=== PATIENT | male | born 1935 | race Caucasian/White ===

== ENCOUNTER 2017-11-18 11:20 | Inpatient (IN) | payer MEDICARE, OTHER ==
[~2017-11-18] VITALS: Ht 167.6 cm; Wt 85.0 kg
[~2017-11-18 11:20] MED LIST: BACK1EAC10 TOP
[2017-11-18 11:50] LABS: BASOPHILS % (AUTO) 0 % (0-1); EOSINOPHILS # (AUTO) 0.4 X10'3 (0-0.9); EOSINOPHILS % (AUTO) 5.5 % (0-6); HEMATOCRIT 41.3 % (42.0-52.0); HEMOGLOBIN 13.4 g/dl (14.0-17.9); LYMPHOCYTES # (AUTO) 0.8 X10'3 (1.1-4.8); LYMPHOCYTES % (AUTO) 11.7 % (21-51); MEAN CORPUSCULAR HEMOGLOBIN 30.2 PG (27.0-31.0); MEAN CORPUSCULAR HGB CONC 32.4 % (33.0-36.5); MEAN PLATELET VOLUME 7.4 FL (7.4-10.4); MONOCYTES # (AUTO) 0.5 X10'3 (0-0.9); MONOCYTES % (AUTO) 8.6 % (2-12); NEUTROPHILS # (AUTO) 4.7 X10'3 (1.8-7.7); NEUTROPHILS % (AUTO) 74.2 % (42-75); PLATELET COUNT 157 X10'3 (140-440); RED BLOOD COUNT 4.45 X10'6 (4.70-6.10); RED CELL DISTRIBUTION WIDTH 15.8 % (11.5-14.5); WHITE BLOOD COUNT 6.4 X10'3 (4.5-11.0)
[2017-11-18 12:00] LABS: INR 2.6 INR; PARTIAL THROMBOPLASTIN TIME 33 SECONDS (22-32); PROTHROMBIN TIME 26.1 SECONDS (9.0-12.0)
[2017-11-18 12:15] LABS: ALANINE AMINOTRANSFERASE 65 U/L (12-78); ALBUMIN 3.8 G/DL (3.4-5.0); ALBUMIN/GLOBULIN RATIO 1.1 (1.1-1.5); ALKALINE PHOSPHATASE 79 IU/L (46-116); ANION GAP 4 (8-16); ASPARTATE AMINO TRANSFERASE 44 U/L (10-37); BILIRUBIN,TOTAL 1.4 MG/DL (0.1-1.0); BLOOD UREA NITROGEN 16 MG/DL (7-18); BUN/CREATININE RATIO 18.2 (5.4-32.0); CHLORIDE 108 MMOL/L (99-107); CREATININE 0.88 MG/DL (0.60-1.10); ETHANOL < 0.010 GM/DL (0.0-0.010); GLUCOSE 110 MG/DL (70-104); MAGNESIUM 2.1 MG/DL (1.5-2.4); PHOSPHORUS 3.2 MG/DL (2.3-4.5); POTASSIUM 4.2 MMOL/L (3.5-5.1); SODIUM 145 MMOL/L (135-145); TOTAL CARBON DIOXIDE 33.3 MMOL/L (24-32); TOTAL PROTEIN 7.4 G/DL (6.4-8.2); eGFR 83 ML/MIN
[2017-11-18 12:55] LABS: CLARITY,URINE CLEAR (Clear); COLOR,URINE YELLOW (Yellow); GLUCOSE, URINE NEGATIVE (Neg); KETONES,URINE NEGATIVE (Neg); LEUKOCYTE ESTERASE ,URINE NEGATIVE (Neg); NITRITES, URINE NEGATIVE (Neg); OCCULT BLOOD,URINE NEGATIVE (Neg); PH,URINE 5.5 (4.8-8.0); PROTEIN,URINE TRACE mg/dl (Neg); UROBILINOGEN,URINE 0.2 E.U/dL (0.2-1.0)
[2017-11-18 12:57] LABS: UA COLLECTION TYPE CLN CATCH MIDSTREAM
[2017-11-18 13:02] LABS: BACTERIA,URINE NONE SEEN /HPF (Neg); MUCUS STRANDS FEW /LPF (Neg); RBC,URINE 0-2 /HPF (0-2); SQUAMOUS EPITHELIAL CELL,UR MODERATE /LPF (FEW); WBC,URINE NONE SEEN /HPF (0-4)
[2017-11-18 13:03] LABS: HYALINE CASTS 0-3 /LPF (NEGATIVE); URINE AMPHETAMINE SCREEN NEGATIVE (Neg); URINE BARBITUATE SCREEN NEGATIVE (Neg); URINE BENZODIAZEPINES SCREEN NEGATIVE (Neg); URINE CANNABINOID SCREEN NEGATIVE (Neg); URINE COCAINE SCREEN NEGATIVE (Neg); URINE METHADONE SCREEN NEGATIVE (Neg); URINE OPIATE SCREEN POSITIVE (Neg); URINE PHENCYCLIDINE SCREEN NEGATIVE (Neg)
[2017-11-18 14:21] LABS: ABG BASE EXCESS 4.2 mmol/L (-2.0-3.0); ABG HCO3 28.7 mmol/L (22.0-26.0); ABG OXYGEN SATURATION 95.3 % (95-98); ABG PCO2 (T) 42.5 mmHg (35.0-48.0); ABG PH (T) 7.448 (7.350-7.450); ALLEN'S TEST Positive; FCOHb 1.2 % (0.5-1.5); FMetHb 0.1 % (0.3-1.12); FO2Hb 94.1 % (94-100); TOTAL HEMOGLOBIN 14.1 G/dl (14.0-18.0)
[2017-11-18] MEDS ORDERED: magnesium hydroxide 30ml (MOM) UD suspension PO PRN (14:45)
[2017-11-18] MEDS ORDERED: magnesium 2GM in 50ml NS 50 ML IV PRN (14:45)
[2017-11-18] MEDS ORDERED: potassium Cl 20 mEq SR tablet PO PRN ×2 (14:45)
[2017-11-18] MEDS ORDERED: mag hydrox/Alum hydrox/simeth 30ml oral suspension PO PRN (14:45)
[2017-11-18] MEDS ORDERED: potassium Cl 40MEQ/NS 500ml 500 ML IV PRN ×2 (14:45)
[2017-11-18] MEDS ORDERED: ondansetron/PF 4mg/2ml inj IV PRN (14:45)
[2017-11-18] MEDS ORDERED: magnesium Cl slow-release 64mg tablet PO PRN (14:45)
[2017-11-18] MEDS ORDERED: magnesium 4gm in 100ml NS 100 ML IV PRN (14:45)
[2017-11-18] MEDS: CefTRIAXone/D5W-Rocephin 1gm 50 ML IV SCH (15:59)
[2017-11-18 17:38] VITALS: BP 124/85
[2017-11-18 19:00] VITALS: BP 139/95
[2017-11-18] MEDS ORDERED: warfarin 4mg tablet PO ONE (21:00)
[2017-11-18 23:00] VITALS: BP 141/89
[2017-11-19] MEDS: acetaminophen 325mg tablet PO PRN ×3 (02:33→19:23)
[2017-11-19 03:00] VITALS: BP 142/96
[2017-11-19 05:37] LABS: BASOPHILS % (AUTO) 0.4 % (0-1); EOSINOPHILS # (AUTO) 0.4 X10'3 (0-0.9); EOSINOPHILS % (AUTO) 5.7 % (0-6); HEMATOCRIT 40.4 % (42.0-52.0); HEMOGLOBIN 13.5 g/dl (14.0-17.9); LYMPHOCYTES # (AUTO) 1.3 X10'3 (1.1-4.8); LYMPHOCYTES % (AUTO) 18.2 % (21-51); MEAN CORPUSCULAR HEMOGLOBIN 30.9 PG (27.0-31.0); MEAN CORPUSCULAR HGB CONC 33.4 % (33.0-36.5); MEAN CORPUSCULAR VOLUME 92.5 FL (78-98); MEAN PLATELET VOLUME 8.3 FL (7.4-10.4); MONOCYTES # (AUTO) 0.6 X10'3 (0-0.9); MONOCYTES % (AUTO) 8.4 % (2-12); NEUTROPHILS # (AUTO) 4.7 X10'3 (1.8-7.7); NEUTROPHILS % (AUTO) 67.3 % (42-75); PLATELET COUNT 152 X10'3 (140-440); RED BLOOD COUNT 4.37 X10'6 (4.70-6.10); RED CELL DISTRIBUTION WIDTH 15.9 % (11.5-14.5)
[2017-11-19 06:00] VITALS: BP 136/57
[2017-11-19 06:15] LABS: INR 2.8 INR; PROTHROMBIN TIME 27.5 SECONDS (9.0-12.0)
[2017-11-19 06:36] LABS: ALANINE AMINOTRANSFERASE 57 U/L (12-78); ALBUMIN 3.6 G/DL (3.4-5.0); ALBUMIN/GLOBULIN RATIO 0.9 (1.1-1.5); ALKALINE PHOSPHATASE 68 IU/L (46-116); ANION GAP 9 (8-16); ASPARTATE AMINO TRANSFERASE 41 U/L (10-37); BILIRUBIN,TOTAL 1.3 MG/DL (0.1-1.0); BLOOD UREA NITROGEN 15 MG/DL (7-18); BUN/CREATININE RATIO 17.4 (5.4-32.0); CHLORIDE 106 MMOL/L (99-107); CREATININE 0.86 MG/DL (0.60-1.10); GLUCOSE 152 MG/DL (70-104); POTASSIUM 4.1 MMOL/L (3.5-5.1); SODIUM 143 MMOL/L (135-145); TOTAL CARBON DIOXIDE 28.2 MMOL/L (24-32); TOTAL PROTEIN 7.4 G/DL (6.4-8.2); eGFR 85 ML/MIN
[2017-11-19] MEDS: CefTRIAXone/D5W-Rocephin 1gm 50 ML IV SCH (07:46)
[2017-11-19] MEDS: K and/or MAG REPLACEMENT MC SCH (08:00)
[2017-11-19] MEDS: furosemide 20 MG/2 ML vial IV SCH ×2 (10:32→20:42)
[2017-11-19 11:00] VITALS: BP 146/82
[2017-11-19] MEDS ORDERED: BUDE10.2 INH (13:41)
[2017-11-19] MEDS ORDERED: TIOT4MIS5 INH (13:48)
[2017-11-19] MEDS ORDERED: VENL-191 PO (13:53)
[2017-11-19] MEDS ORDERED: WARF2TAB7 PO (13:57)
[2017-11-19] MEDS ORDERED: WARF2TAB PO (14:01)
[2017-11-19] MEDS ORDERED: ATOR80TA PO (14:03)
[2017-11-19] MEDS ORDERED: FINA5TAB11 PO (14:04)
[2017-11-19] MEDS ORDERED: DIGO125T PO (14:04)
[2017-11-19] MEDS ORDERED: MONT10TA24 PO (14:05)
[2017-11-19] MEDS ORDERED: FLO0.4C PO (14:07)
[2017-11-19] MEDS ORDERED: ALBU18HF2 INH (14:11)
[2017-11-19] MEDS ORDERED: OMEP40CA37 PO (14:16)
[2017-11-19] MEDS ORDERED: MESSAGE TO PHARMACY PO ONE (14:20)
[2017-11-19] MEDS ORDERED: glucagon, human recombinant 1mg kit SUBCUT PRN (14:20)
[2017-11-19] MEDS ORDERED: dextrose ORAL solution 15 GM/59 ML bottle PO PRN ×2 (14:20)
[2017-11-19] MEDS ORDERED: dextrose 50%-water 50ml dispensing syringe IV PRN ×2 (14:20)
[2017-11-19] MEDS ORDERED: insulin Lispro (HumaLOG) vial - multi-dose SQ SCH (14:20)
[2017-11-19 15:00] VITALS: BP 162/86
[2017-11-19] MEDS ORDERED: albuterol 2.5 MG/3 ML nebule NEB PRN (16:50)
[2017-11-19] MEDS ORDERED: non-formulary drug (Warfarin Sodium (Coumadin) 1 TAB) PO SCH (16:50)
[2017-11-19 18:00] VITALS: BP 136/79
[2017-11-19] MEDS: insulin glargine (Lantus) pen - multi-dose SQ SCH (20:35)
[2017-11-19] MEDS: atorvastatin 20mg tablet PO SCH (20:38)
[2017-11-19] MEDS: venlafaxine 37.5mg tablet PO SCH (20:39)
[2017-11-19] MEDS: montelukast 10mg tablet PO SCH (20:39)
[2017-11-19] MEDS ORDERED: warfarin 4mg tablet PO ONE (21:00)
[2017-11-19 22:00] VITALS: BP 128/71
[2017-11-19] MEDS: temazepam 15mg capsule PO PRN (23:12)
[2017-11-20 02:00] VITALS: BP 142/77
[2017-11-20 05:26] LABS: BASOPHILS % (AUTO) 0.3 % (0-1); EOSINOPHILS # (AUTO) 0.4 X10'3 (0-0.9); EOSINOPHILS % (AUTO) 5.4 % (0-6); HEMATOCRIT 40.1 % (42.0-52.0); HEMOGLOBIN 13.4 g/dl (14.0-17.9); LYMPHOCYTES # (AUTO) 1.1 X10'3 (1.1-4.8); MEAN CORPUSCULAR HEMOGLOBIN 30.7 PG (27.0-31.0); MEAN CORPUSCULAR HGB CONC 33.3 % (33.0-36.5); MEAN CORPUSCULAR VOLUME 92.4 FL (78-98); MEAN PLATELET VOLUME 8.2 FL (7.4-10.4); MONOCYTES # (AUTO) 0.6 X10'3 (0-0.9); MONOCYTES % (AUTO) 8.8 % (2-12); NEUTROPHILS # (AUTO) 4.7 X10'3 (1.8-7.7); NEUTROPHILS % (AUTO) 69.5 % (42-75); PLATELET COUNT 156 X10'3 (140-440); RED BLOOD COUNT 4.34 X10'6 (4.70-6.10); RED CELL DISTRIBUTION WIDTH 16.1 % (11.5-14.5); WHITE BLOOD COUNT 6.8 X10'3 (4.5-11.0)
[2017-11-20 05:43] LABS: INR 3.1 INR; PROTHROMBIN TIME 30.8 SECONDS (9.0-12.0)
[2017-11-20 06:00] VITALS: BP 124/67
[2017-11-20 06:19] LABS: ALANINE AMINOTRANSFERASE 55 U/L (12-78); ALBUMIN 3.4 G/DL (3.4-5.0); ALBUMIN/GLOBULIN RATIO 0.9 (1.1-1.5); ALKALINE PHOSPHATASE 77 IU/L (46-116); ANION GAP 9 (8-16); ASPARTATE AMINO TRANSFERASE 38 U/L (10-37); BLOOD UREA NITROGEN 16 MG/DL (7-18); BUN/CREATININE RATIO 18.2 (5.4-32.0); CALCIUM 8.6 MG/DL (8.5-10.1); CHLORIDE 105 MMOL/L (99-107); CREATININE 0.88 MG/DL (0.60-1.10); GLUCOSE 128 MG/DL (70-104); SODIUM 144 MMOL/L (135-145); eGFR 83 ML/MIN
[2017-11-20] MEDS: K and/or MAG REPLACEMENT MC SCH (07:14)
[2017-11-20] MEDS ORDERED: fluticasone/vilanterol 200mcg/25mcg inhaler IH SCH (08:00)
[2017-11-20] MEDS ORDERED: WARFARIN SODIUM PO SCH (08:00)
[2017-11-20] MEDS: furosemide 20 MG/2 ML vial IV SCH ×2 (09:12→20:34)
[2017-11-20] MEDS: tamsulosin 0.4mg capsule PO SCH (09:13)
[2017-11-20] MEDS: pantoprazole 40mg Tablet.DR PO SCH (09:13)
[2017-11-20] MEDS: venlafaxine 37.5mg tablet PO SCH ×2 (10:48→20:34)
[2017-11-20] MEDS: finasteride 5mg tablet PO SCH (10:49)
[2017-11-20 11:00] VITALS: BP 146/82
[2017-11-20 15:00] VITALS: BP 131/90
[2017-11-20 19:00] VITALS: BP 127/81
[2017-11-20] MEDS: atorvastatin 20mg tablet PO SCH (20:32)
[2017-11-20] MEDS: montelukast 10mg tablet PO SCH (20:34)
[2017-11-20] MEDS ORDERED: warfarin 1mg tablet PO ONE (21:00)
[2017-11-20] MEDS: insulin glargine (Lantus) pen - multi-dose SQ SCH (21:08)
[2017-11-20] MEDS: temazepam 15mg capsule PO PRN (21:13)
[2017-11-20 23:00] VITALS: BP 120/85
[2017-11-21 03:00] VITALS: BP 124/55
[2017-11-21 04:59] LABS: BASOPHILS % (AUTO) 0.6 % (0-1); EOSINOPHILS # (AUTO) 0.4 X10'3 (0-0.9); EOSINOPHILS % (AUTO) 5.8 % (0-6); HEMATOCRIT 41.1 % (42.0-52.0); HEMOGLOBIN 13.8 g/dl (14.0-17.9); LYMPHOCYTES # (AUTO) 1.4 X10'3 (1.1-4.8); LYMPHOCYTES % (AUTO) 20.2 % (21-51); MEAN CORPUSCULAR HGB CONC 33.5 % (33.0-36.5); MEAN CORPUSCULAR VOLUME 92.4 FL (78-98); MEAN PLATELET VOLUME 7.9 FL (7.4-10.4); MONOCYTES # (AUTO) 0.7 X10'3 (0-0.9); MONOCYTES % (AUTO) 9.6 % (2-12); NEUTROPHILS # (AUTO) 4.5 X10'3 (1.8-7.7); NEUTROPHILS % (AUTO) 63.8 % (42-75); PLATELET COUNT 160 X10'3 (140-440); RED BLOOD COUNT 4.44 X10'6 (4.70-6.10); RED CELL DISTRIBUTION WIDTH 16.2 % (11.5-14.5); WHITE BLOOD COUNT 7.1 X10'3 (4.5-11.0)
[2017-11-21 05:19] LABS: INR 2.9 INR; PROTHROMBIN TIME 28.9 SECONDS (9.0-12.0)
[2017-11-21 05:35] LABS: ALANINE AMINOTRANSFERASE 57 U/L (12-78); ALBUMIN 3.4 G/DL (3.4-5.0); ALKALINE PHOSPHATASE 82 IU/L (46-116); ANION GAP 7 (8-16); ASPARTATE AMINO TRANSFERASE 39 U/L (10-37); BILIRUBIN,TOTAL 0.9 MG/DL (0.1-1.0); BLOOD UREA NITROGEN 19 MG/DL (7-18); CHLORIDE 105 MMOL/L (99-107); CREATININE 0.95 MG/DL (0.60-1.10); GLUCOSE 129 MG/DL (70-104); POTASSIUM 3.7 MMOL/L (3.5-5.1); SODIUM 145 MMOL/L (135-145); TOTAL CARBON DIOXIDE 33.4 MMOL/L (24-32); TOTAL PROTEIN 6.9 G/DL (6.4-8.2); eGFR 76 ML/MIN
[2017-11-21 06:00] VITALS: BP 133/55
[2017-11-21] MEDS: K and/or MAG REPLACEMENT MC SCH (06:31)
[2017-11-21] MEDS ORDERED: fluticasone/vilanterol 200mcg/25mcg inhaler IH SCH (08:00)
[2017-11-21] MEDS: furosemide 20 MG/2 ML vial IV SCH (08:19)
[2017-11-21] MEDS: venlafaxine 37.5mg tablet PO SCH (08:26)
[2017-11-21] MEDS: tamsulosin 0.4mg capsule PO SCH (08:26)
[2017-11-21] MEDS: finasteride 5mg tablet PO SCH (08:28)
[2017-11-21] MEDS: pantoprazole 40mg Tablet.DR PO SCH (08:28)
[2017-11-21 11:00] VITALS: BP 125/83
[2017-11-21] MEDS ORDERED: LISI2.5T2 PO (11:05)
[2017-11-21] MEDS ORDERED: CARV-49 PO (11:07)
== END 2017-11-21 12:55 | disposition home or self-care (01) | DRG 154 ==
LOC: ER 11:20 → ED HOLD 14:42 → OBSVTOIN 14:42 → EDBEDREQ 16:24 → PCU 3S 17:55
PROVIDERS: ADMIT Internal Medicine; ATTEND Internal Medicine
DX: S02.2XXA Fracture of nasal bones, initial encounter for closed fracture (principal); I50.21 Acute systolic (congestive) heart failure; I48.2 Chronic atrial fibrillation; E11.9 Type 2 diabetes mellitus without complications; I25.10 Atherosclerotic heart disease of native coronary artery without angina pectoris; J32.4 Chronic pansinusitis; R55 Syncope and collapse; Z87.891 Personal history of nicotine dependence; I48.92 Unspecified atrial flutter; R00.1 Bradycardia, unspecified; W18.39XA Other fall on same level, initial encounter; Z95.2 Presence of prosthetic heart valve; Y93.89 Activity, other specified; Y92.89 Other specified places as the place of occurrence of the external cause; Y99.8 Other external cause status
CPT/HCPCS: 36415; 36600; 70450; 70486; 71045; 80053; 80305; 80320; 81001; 82140; 82803; 82948; 83036; 83735; 83880; 84100; 84484; 85018; 85025; 85610; 85730; 87070; 93005; 93306; 93880; 94640; 94760; 97116; 97161; J0696; J1815; J1940

== ENCOUNTER 2020-05-07 20:09 | Emergency (ER) | payer MEDICARE, OTHER ==
[~2020-05-07] VITALS: Ht 167.6 cm; Wt 78.6 kg
[~2020-05-07 20:09] MED LIST changes: +ALBU18HF2 INH; +ATOR80TA PO; +BUDE10.2 INH; +CARV-49 PO; +DIGO125T PO; +FINA5TAB11 PO; +FLO0.4C PO; +LISI2.5T2 PO; +MONT10TA26 PO; +OMEP40CA13 PO; +TIOT4MIS5 INH; +VENL-191 PO; +WARF-65 PO; +WARF2TAB PO
[2020-05-07] MEDS ORDERED: LIDOcaine 1% W/epiNEPHrine 1:200,000 10ml vial IJ ONE (20:45)
[2020-05-07 21:00] VITALS: BP 131/77
== END 2020-05-07 21:38 | disposition home or self-care (01) ==
LOC: ER 20:10
DX: S91.312A Laceration without foreign body, left foot, initial encounter (principal); Z98.890 Other specified postprocedural states; Z79.899 Other long term (current) drug therapy; W18.39XA Other fall on same level, initial encounter; Y93.89 Activity, other specified; Y92.89 Other specified places as the place of occurrence of the external cause; Y99.8 Other external cause status
CPT/HCPCS: 12002; 99282

== ENCOUNTER 2020-10-07 13:33 | Emergency (ER) | payer MEDICARE, OTHER ==
[~2020-10-07] VITALS: Ht 167.6 cm; Wt 7.6 kg
[~2020-10-07 13:33] MED LIST changes: -MONT10TA26 PO; +MONT10TA97 PO
[2020-10-07 15:37] VITALS: BP 119/77
--- NOTE | 2020-10-07 16:34 | NUR ---
vascular at bedside
== END 2020-10-07 17:44 | disposition home or self-care (01) ==
LOC: ER 13:33
DX: S80.12XA Contusion of left lower leg, initial encounter (principal); M79.662 Pain in left lower leg; Z98.890 Other specified postprocedural states; Z79.899 Other long term (current) drug therapy; X58.XXXA Exposure to other specified factors, initial encounter; Y93.89 Activity, other specified; Y92.89 Other specified places as the place of occurrence of the external cause; Y99.8 Other external cause status
CPT/HCPCS: 36415; 85610; 93971; 99284

== ENCOUNTER 2020-12-03 12:53 | Emergency (ER) | payer OTHER, MEDICARE ==
[~2020-12-03] VITALS: Ht 167.6 cm; Wt 80.0 kg
[~2020-12-03 12:53] MED LIST changes: +MONT10TA32 PO; -MONT10TA97 PO
[2020-12-03 13:39] LABS: BASOPHILS % (AUTO) 0.6 % (0-1); EOSINOPHILS # (AUTO) 0.3 X10'3 (0-0.9); EOSINOPHILS % (AUTO) 5.8 % (0-6); HEMATOCRIT 40.1 % (42.0-52.0); LYMPHOCYTES # (AUTO) 0.9 X10'3 (1.1-4.8); LYMPHOCYTES % (AUTO) 14.4 % (21-51); MEAN CORPUSCULAR HEMOGLOBIN 31.8 PG (27.0-31.0); MEAN CORPUSCULAR HGB CONC 32.4 g/dL (33.0-36.5); MEAN CORPUSCULAR VOLUME 98.3 FL (78-98); MEAN PLATELET VOLUME 7.7 FL (7.4-10.4); MONOCYTES # (AUTO) 0.7 X10'3 (0-0.9); NEUTROPHILS % (AUTO) 68.2 % (42-75); PLATELET COUNT 171 X10'3 (140-440); RED BLOOD COUNT 4.08 X10'6 (4.70-6.10); RED CELL DISTRIBUTION WIDTH 16.3 % (11.5-14.5); WHITE BLOOD COUNT 5.9 X10'3 (4.5-11.0)
[2020-12-03] MEDS ORDERED: furosemide 10 MG/1 ML 10ml inj IV ONE (13:40)
[2020-12-03] MEDS ORDERED: methylPREDNISolone sod succ 125mg/2ml vial IV ONE (13:40)
[2020-12-03] MEDS ORDERED: ipratropium/albuterol 3ml nebule NEB ONE (13:40)
[2020-12-03 13:56] LABS: ALANINE AMINOTRANSFERASE 25 U/L (12-78); ALBUMIN 3.8 G/DL (3.4-5.0); ALKALINE PHOSPHATASE 91 IU/L (46-116); ANION GAP 5 (8-16); ASPARTATE AMINO TRANSFERASE 24 U/L (10-37); BILIRUBIN,TOTAL 1.1 MG/DL (0.1-1.0); BLOOD UREA NITROGEN 25 MG/DL (7-18); BUN/CREATININE RATIO 22.1 (5.4-32.0); CALCIUM 9.1 MG/DL (8.5-10.1); CHLORIDE 105 MMOL/L (99-107); CREATININE 1.13 MG/DL (0.60-1.10); GLUCOSE 150 MG/DL (70-104); POTASSIUM 4.7 MMOL/L (3.5-5.1); SODIUM 143 MMOL/L (135-145); TOTAL CARBON DIOXIDE 33.5 MMOL/L (24-32); TOTAL PROTEIN 7.6 G/DL (6.4-8.2); eGFR 62 ML/MIN
[2020-12-03] MEDS ORDERED: FURO-150 PO (15:46)
[2020-12-03] MEDS ORDERED: POTA10TA19 PO (15:46)
[2020-12-03 15:58] VITALS: BP 129/89
== END 2020-12-03 16:10 | disposition home or self-care (01) ==
LOC: ER 12:54
DX: I50.9 Heart failure, unspecified (principal); I11.0 Hypertensive heart disease with heart failure; I48.91 Unspecified atrial fibrillation; R06.02 Shortness of breath; R07.89 Other chest pain; R06.01 Orthopnea; E78.00 Pure hypercholesterolemia, unspecified; J44.9 Chronic obstructive pulmonary disease, unspecified; K21.9 Gastro-esophageal reflux disease without esophagitis; Z86.718 Personal history of other venous thrombosis and embolism; Z98.890 Other specified postprocedural states; Z88.1 Allergy status to other antibiotic agents; Z88.8 Allergy status to other drugs, medicaments and biological substances; Z79.899 Other long term (current) drug therapy
CPT/HCPCS: 36415; 71045; 80053; 83880; 84484; 85025; 93005; 94640; 96374; 96375; 99285; J1940; J2930; 94760

== ENCOUNTER 2022-05-17 15:13 | Emergency (ER) | payer OTHER, MEDICARE ==
[~2022-05-17] VITALS: Ht 167.6 cm; Wt 78.0 kg
[~2022-05-17 15:13] MED LIST changes: +ACET325T55 PO; -BACK1EAC10 TOP; -CARV-49 PO; +CHOL20004 PO; +CLOT15CR10 TOP; +CRAN500C4 PO; -DIGO125T PO; +FLUT16SP2 BOTHNARES; +FURO-150 PO; +GLUC-95 PO; +GUAI400T92 PO; +HYDR-3965 PO; +LIDO700A32 TOP; -LISI2.5T2 PO; +LOSA25TA41 PO; +METF-900 PO; -MONT10TA32 PO; +MULT-384 PO; +OMEG1CAP46 PO; -OMEP40CA13 PO; +PANT-47 PO; +POTA10CA44 PO; +VITA1TAB57 PO; -WARF-65 PO; +WARF1TAB83 PO; -WARF2TAB PO; +WOOL454C TP; +ZOLP5TAB8 PO
[2022-05-17 15:15] VITALS: BP 105/57
[2022-05-17] MEDS ORDERED: GABA-530 PO (15:58)
[2022-05-17] MEDS ORDERED: ACYC-129 PO (15:58)
[2022-05-17] MEDS ORDERED: PRED10TA23 PO (15:58)
== END 2022-05-17 16:18 | disposition home or self-care (01) ==
LOC: ER 15:13
DX: G51.0 Bell's palsy (principal); E78.00 Pure hypercholesterolemia, unspecified; I11.9 Hypertensive heart disease without heart failure; J44.9 Chronic obstructive pulmonary disease, unspecified; K21.9 Gastro-esophageal reflux disease without esophagitis; Z88.2 Allergy status to sulfonamides; Z79.1 Long term (current) use of non-steroidal anti-inflammatories (NSAID); Z79.2 Long term (current) use of antibiotics; Z79.82 Long term (current) use of aspirin; Z79.84 Long term (current) use of oral hypoglycemic drugs
CPT/HCPCS: 99283

== ENCOUNTER 2022-09-28 17:19 | Emergency (ER) | payer OTHER, MEDICARE ==
[~2022-09-28] VITALS: Ht 175.3 cm; Wt 77.0 kg
[~2022-09-28 17:19] MED LIST changes: -ACET325T55 PO; -ALBU18HF2 INH; +ALBU8HFA PO; -BUDE10.2 INH; -CHOL20004 PO; -CLOT15CR10 TOP; -CRAN500C4 PO; -FLUT16SP2 BOTHNARES; -GLUC-95 PO; -GUAI400T92 PO; -HYDR-3965 PO; -LIDO700A32 TOP; -LOSA25TA41 PO; +LOSA25TA96 PO; +METO100T7 PO; -MULT-384 PO; -OMEG1CAP46 PO; -PANT-47 PO; -POTA10CA44 PO; +POTA10CA45 PO; +TAM75C PO; -TIOT4MIS5 INH; -VITA1TAB57 PO; -WOOL454C TP; -ZOLP5TAB8 PO
[2022-09-28] MEDS ORDERED: iohexol 350MG/ML 100ml bottle IV ONE (17:52)
[2022-09-28 18:02] LABS: BASOPHILS % (AUTO) 0.6 % (0-1); EOSINOPHILS # (AUTO) 0.3 X10'3 (0-0.9); EOSINOPHILS % (AUTO) 5.1 % (0-6); HEMATOCRIT 36.3 % (42.0-52.0); LYMPHOCYTES # (AUTO) 1.1 X10'3 (1.1-4.8); LYMPHOCYTES % (AUTO) 18.3 % (21-51); MEAN CORPUSCULAR HGB CONC 32.9 g/dL (33.0-36.5); MEAN PLATELET VOLUME 7.7 FL (7.4-10.4); MONOCYTES # (AUTO) 0.7 X10'3 (0-0.9); MONOCYTES % (AUTO) 10.5 % (2-12); NEUTROPHILS # (AUTO) 4.1 X10'3 (1.8-7.7); NEUTROPHILS % (AUTO) 65.5 % (42-75); PLATELET COUNT 178 X10'3 (140-440); RED BLOOD COUNT 3.63 X10'6 (4.70-6.10); RED CELL DISTRIBUTION WIDTH 15.8 % (11.5-14.5); WHITE BLOOD COUNT 6.2 X10'3 (4.5-11.0)
[2022-09-28 18:30] LABS: ALANINE AMINOTRANSFERASE 29 U/L (12-78); ALBUMIN 3.5 G/DL (3.4-5.0); ALBUMIN/GLOBULIN RATIO 0.8 (1.1-1.5); ALKALINE PHOSPHATASE 85 IU/L (46-116); ANION GAP 7 (8-16); ASPARTATE AMINO TRANSFERASE 31 U/L (10-37); BLOOD UREA NITROGEN 25 MG/DL (7-18); BUN/CREATININE RATIO 19.2 (5.4-32.0); CALCIUM 9.1 MG/DL (8.5-10.1); CHLORIDE 104 MMOL/L (99-107); GLUCOSE 133 MG/DL (70-104); POTASSIUM 4.6 MMOL/L (3.5-5.1); SODIUM 143 MMOL/L (135-145); TOTAL CARBON DIOXIDE 32.2 MMOL/L (24-32); TOTAL PROTEIN 7.7 G/DL (6.4-8.2); eGFR 52 ML/MIN
[2022-09-28 21:07] VITALS: BP 120/80
== END 2022-09-28 21:18 | disposition home or self-care (01) ==
LOC: ER 17:20
DX: I82.401 Acute embolism and thrombosis of unspecified deep veins of right lower extremity (principal); R77.8 Other specified abnormalities of plasma proteins; E78.00 Pure hypercholesterolemia, unspecified; J44.9 Chronic obstructive pulmonary disease, unspecified; I10 Essential (primary) hypertension; K21.9 Gastro-esophageal reflux disease without esophagitis; E11.9 Type 2 diabetes mellitus without complications
CPT/HCPCS: 36415; 71045; 71275; 80053; 83880; 84484; 85025; 85610; 93005; 99285; J3490; Q9967

== ENCOUNTER → 2023-08-11 | Outpatient (CLI) | payer MEDICARE ==
[~2023-08-11] MED LIST changes: +LOSA-415 PO; -LOSA25TA96 PO; -POTA10CA45 PO; +POTA10CA85 PO
== END | disposition home or self-care (01) ==
LOC: RAD 12:31
PROVIDERS: ATTEND Physician Assistant
DX: M47.12 Other spondylosis with myelopathy, cervical region (principal)
CPT/HCPCS: 72141

== ENCOUNTER 2024-02-05 22:16 | Emergency (ER) | payer MEDICARE ==
[~2024-02-05] VITALS: Ht 167.6 cm; Wt 71.8 kg
[2024-02-05 22:34] VITALS: BP 120/66; PULSE 69; RESP 18; TEMP 97; O2SAT 97
== END 2024-02-06 02:59 | disposition left against medical advice (07) ==
LOC: ER 22:17
DX: S01.312A Laceration without foreign body of left ear, initial encounter (principal); W01.0XXA Fall on same level from slipping, tripping and stumbling without subsequent striking against object, initial encounter; Y93.89 Activity, other specified; Y92.89 Other specified places as the place of occurrence of the external cause; Y99.8 Other external cause status; Z53.21 Procedure and treatment not carried out due to patient leaving prior to being seen by health care provider
CPT/HCPCS: 70450